=== PATIENT | male | born 1985 | race Hispanic/Latino ===

== ENCOUNTER 2017-07-05 13:27 | Emergency (ER) | payer OTHER ==
[2017-07-05 13:28] VITALS: BMI 25.0
[2017-07-05 17:19] LABS: URINE BILIRUBIN NEGATIVE (NEGATIVE); URINE BLOOD NEGATIVE (NEGATIVE); URINE CLARITY Clear (Clear); URINE COLOR Straw (YELLOW); URINE GLUCOSE (UA) 2+ mg/dL (Normal); URINE LEUKOCYTE ESTERASE NEG Leu/uL (Negative); URINE PROTEIN 2+ mg/dL (NEGATIVE); URINE UROBILINOGEN NORMAL mg/dL (0.2-1.0)
[2017-07-05] MEDS ORDERED: Dextrose 50% SYRINGE Inj (50 ml) IVP STA (17:19)
[2017-07-05 17:20] LABS: EOS # 0.1 K/uL (0.0-0.7); HEMOGLOBIN 11.9 g/dL (12.0-18.0); LYMPH # 1.6 K/uL (1.0-4.3); LYMPH % 43.6 % (20.0-40.0); MEAN CELL VOLUME 91.8 fL (80.0-94.0); MEAN CORPUSCULAR HEMOGLOBIN 32.1 pg (27.0-31.0); MEAN PLATELET VOLUME 8.1 fL (7.2-11.7); MONO # 0.3 K/uL (0.0-0.8); MONO % 9.2 % (0.0-10.0); NEUT # 1.6 K/uL (1.8-7.0); NEUT % 43.2 % (50.0-75.0); NRBC % 0.1 % (0.0-2.0); RBC 3.72 Mil/uL (4.40-5.90); RED CELL DISTRIBUTION WIDTH 12.5 % (11.5-14.5); WHITE BLOOD COUNT 3.6 K/uL (4.8-10.8)
[2017-07-05] MEDS ORDERED: Dextrose 50% VIAL Inj (50 ml) IV ONE (17:22)
[2017-07-05 17:29] LABS: ALB/GLOB RATIO 0.9 (1.0-2.1); ALBUMIN 4.1 g/dL (3.5-5.0); ALT/SGPT 24 U/L (21-72); AST/SGOT 23 U/L (17-59); BLOOD UREA NITROGEN 19 mg/dL (9-20); CALCIUM 9.3 mg/dl (8.6-10.4); GFR AFRICAN-AMERICAN 28; GFR NON-AFRICAN AMERICAN 23
--- NOTE | 2017-07-05 17:38 | RAD ---
PROCEDURE: CHEST RADIOGRAPH, 1 VIEW HISTORY: Chest pain COMPARISON: 12/12/2015. FINDINGS: LUNGS: The lungs are well inflated and clear. There is a small calcified granuloma in the left mid lung. PLEURA: No pneumothorax or pleural fluid seen. CARDIOVASCULAR: Normal. OSSEOUS STRUCTURES: No significant abnormalities. VISUALIZED UPPER ABDOMEN: Normal. OTHER FINDINGS: None. IMPRESSION: No active pulmonary disease.
[2017-07-05 17:40] LABS: CK-MB 1.27 ng/mL (0.0-3.38)
--- NOTE | 2017-07-05 17:43 | RAD ---
PROCEDURE: Bilateral Knee Radiographs. HISTORY: B/L KNEE PAIN COMPARISON: None. FINDINGS: BONES: Right Knee: Bone alignment and mineralization are normal. No acute fracture. Left Knee: Bone alignment and mineralization are normal. No acute fracture. JOINTS: Right Knee: Mild degenerative osteoarthrosis in the medial compartment. Left knee: Mild degenerative osteoarthrosis in the medial compartment. SOFT TISSUES: Right Knee: Normal. Left Knee: Normal. JOINT EFFUSION: Right Knee: None. Left Knee: None. OTHER FINDINGS: None. IMPRESSION: Mild degenerative osteoarthrosis in the medial compartment. No acute fracture or dislocation
--- NOTE | 2017-07-05 18:07 | C.PDOC ---
History Of Present Illness 32 y/o male with history of Type 1 Diabetes, HTN and chronic kidney disease presents to ED with complaints of bilateral knee pain since yesterday and pleuritic chest pain since earlier today. Patient denies trauma, cough, fever, sob or any other complaints at this time. Time Seen by Provider: 07/05/17 16:40 Chief Complaint (Nursing): Lower Extremity Problem/Injury History Per: Patient History/Exam Limitations: no limitations Onset/Duration Of Symptoms: Days Current Symptoms Are (Timing): Still Present Past Medical History Reviewed: Historical Data, Nursing Documentation, Vital Signs Vital Signs: Last Vital Signs Temp 98.2 F 07/05/17 14:52 Pulse 80 07/05/17 17:32 Resp 16 07/05/17 17:32 BP 152/54 H 07/05/17 17:32 Pulse Ox 98 07/05/17 20:07 - Medical History PMH: Diabetes, HTN, Hypercholesterolemia, Chronic Kidney Disease (elevated creatinin) Surgical History: No Surg Hx - [facility] Procedures IRRIGATION OF EAR (08/17/14) Family History: States: No Known Family Hx - Social History Hx Tobacco Use: No Hx Alcohol Use: No Hx Substance Use: Yes (marijuana) - Immunization History Hx Tetanus Toxoid Vaccination: No Hx Influenza Vaccination: No Hx Pneumococcal Vaccination: No Review Of Systems Constitutional: Negative for: Fever, Chills Cardiovascular: Positive for: Chest Pain Respiratory: Negative for: Cough, Shortness of Breath Musculoskeletal: Positive for: Leg Pain Skin: Negative for: Rash Neurological: Negative for: Weakness, Numbness Physical Exam - Physical Exam Appears: Non-toxic, No Acute Distress Skin: Warm, Dry, No Rash Head: Atraumatic, Normacephalic Oral Mucosa: Moist Neck: Normal ROM, Supple Cardiovascular: Rhythm Regular Respiratory: Normal Breath Sounds, No Rales, No Rhonchi, No Wheezing Gastrointestinal/Abdominal: Soft, No Tenderness, No Guarding, No Rebound Extremity: No Calf Tenderness, No Deformity, No Swelling Pulses: Left Dorsalis Pedis: Normal, Right Dorsalis Pedis: Normal Neurological/Psych: Oriented x3, Normal Speech, Normal Motor, Normal Sensation Gait: Steady ED Course And Treatment - Laboratory Results Result Diagrams: 07/05/17 17:10 07/05/17 17:10 ECG: Interpreted By Me, Viewed By Me ECG Rhythm: Sinus Rhythm Rate From EC (BPM) O2 Sat by Pulse Oximetry: 98 (RA) Pulse Ox Interpretation: Normal Progress Note: Blood work, ECG ordered. Dextrose administered Disposition Counseled Patient/Family Regarding: Studies Performed, Diagnosis, Need For Followup, Rx Given - Disposition Referrals: [facility] [Outside] Disposition: HOME/ ROUTINE Disposition Time: 20:10 Condition: STABLE Additional Instructions: FOLLOW UP WITH YOUR DOCTOR IN 1-2 DAYS USE MEDICATIONS NEEDED RETURN TO ER IF SYMPTOMS WORSEN Prescriptions: traMADol [Ultram] 50 mg PO BID PRN #15 tab PRN Reason: pain Instructions: Knee Pain (DC) Forms: [employer] (Lao) Print Language: SETSWANA - POA Present On Arrival: None - Clinical Impression Clinical Impression: Knee pain, bilateral - Scribe Statement The provider has reviewed the documentation as recorded by the Scribcooper Ortiz All medical record entries made by the Kennedyibcooper were at my direction and personally dictated by me. I have reviewed the chart and agree that the record accurately reflects my personal performance of the history, physical exam, medical decision making, and the department course for this patient. I have also personally directed, reviewed, and agree with the discharge instructions and disposition.
[2017-07-05 20:40] VITALS: BP 138/83; PULSE 78; RESP 20; TEMP 98.6; O2SAT 100
[2017-07-06 16:54] LABS: LYME IGG NEGATIVE (NEGATIVE)
[2017-07-06 17:05] LABS: LYME IGM NEGATIVE (NEGATIVE)
--- NOTE | 2017-07-06 17:10 | CARD ---
APPROVED REPORT EKG Measurement Heart [id number] <Conclusion> Normal sinus rhythm Normal ECG
== END 2017-07-05 20:40 | disposition home or self-care (01) ==
LOC: C.ER 13:27
DX: M25.562 Pain in left knee (principal); M25.561 Pain in right knee

== ENCOUNTER 2018-02-25 17:00 | Emergency (ER) | payer OTHER ==
[2018-02-25 17:15] VITALS: BMI 24.7
--- NOTE | 2018-02-25 18:12 | C.PDOC ---
History Of Present Illness 32yo male with history of diabetes, CKD, hypertension, comes to ER reporting new onset left sided pleuritic pain, shortness of breath and dyspnea on exertion sicne this afternoon. Patient states it feels "like I can't catch my breath." He denies any PE risk factors; also denies leg swelling or pain. Patient does have childhood history of asthma but denies any smoking. No other complaints. NEW ONSET L PLEURITIC PAIN, SOB/RITTER SINCE THIS AFTERNOON. WORSE W EXERTION "LIKE I CAN'T CATCH MY BREATH". DENIES PE RISK FACTORS, LEG SWELL OR PAIN. HO CHILDHOOD ASTHMA, NO SMOKING. HO DM1, CKD, HTN. BASELINE GLU 80S BUT TODAY MID 200. NO FEVER, COUGH. BASELINE CREAT 3.5, GFR 23 EXAM NAD NONTOXIC HEENT NEG LUNGS CTA B/L NO W/R/R NO RETRACTIONS SPEAKING FULL SENTENCES CV RRR ABD NEG EXT NO EDEMA REMAINDER NEG Time Seen by Provider: 02/25/18 17:40 Chief Complaint (Nursing): Shortness Of Breath History Per: Patient History/Exam Limitations: no limitations Onset/Duration Of Symptoms: Hrs Current Symptoms Are (Timing): Still Present Additional History Per: Patient Past Medical History Reviewed: Historical Data, Nursing Documentation, Vital Signs Vital Signs: Last Vital Signs Temp 98.8 F 02/25/18 17:17 Pulse 102 H 02/25/18 17:17 Resp 20 02/25/18 17:44 BP 149/97 H 02/25/18 17:17 Pulse Ox 100 02/25/18 17:17 - Medical History PMH: Asthma, Diabetes, HTN, Hypercholesterolemia, Chronic Kidney Disease (elevated creatinin) Surgical History: No Surg Hx - [facility] Procedures IRRIGATION OF EAR (08/17/14) Family History: States: Unknown Family Hx - Social History Hx Tobacco Use: No Hx Alcohol Use: No Hx Substance Use: Yes (marijuana) - Immunization History Hx Tetanus Toxoid Vaccination: No Hx Influenza Vaccination: No Hx Pneumococcal Vaccination: No Review Of Systems Except As Marked, All Systems Reviewed And Found Negative. Constitutional: Negative for: Fever Respiratory: Positive for: Shortness of Breath, SOB with Excertion, Pleuritic Pain (left sided). Negative for: Cough Musculoskeletal: Negative for: Leg Pain, Other (leg swelling) Physical Exam - Physical Exam Appears: Non-toxic, No Acute Distress Skin: Normal Color, Warm, Dry Head: Atraumatic, Normacephalic Eye(s): bilateral: Normal Inspection, PERRL, EOMI Nose: Normal Oral Mucosa: Moist Throat: Normal, No Erythema, No Exudate Neck: Normal ROM, Supple Chest: Symmetrical Cardiovascular: Rhythm Regular, No Murmur Respiratory: Normal Breath Sounds, No Rales, No Rhonchi, No Wheezing, Other (speaking full sentences; no retractions) Gastrointestinal/Abdominal: Normal Exam, Soft, No Tenderness Back: Normal Inspection Extremity: Normal ROM, No Pedal Edema Neurological/Psych: Oriented x3, Normal Speech, Normal Cognition, Normal Motor, Normal Sensation ED Course And Treatment - Laboratory Results Result Diagrams: 02/25/18 18:29 02/25/18 18:29 ECG: Interpreted By Me ECG Rhythm: Sinus Tachycardia ECG Interpretation: Normal Rate From EC O2 Sat by Pulse Oximetry: 100 (RA) Pulse Ox Interpretation: Normal - Radiology CXR: Interpreted by Me CXR Interpretation: Yes: No Acute Disease - Other Rad CXR X-Ray: Read By Radiologist Interpretation: FINDINGS: LUNGS: No active pulmonary disease. PLEURA: No significant pleural effusion identified. No pneumothorax apparent. CARDIOVASC ULAR: No aortic atherosclerotic calcification present. Normal cardiac size. No pulmonary vascular congestion. OSSEOUS STRUCTURES: No significant abnormalities. VISUALIZED UPPER ABDOMEN: Normal. OTHER FINDINGS: None. IMPRESSION: No active disease. No significant interval change compared to the prior examination(s). Progress - Re-Evaluation Re-evaluation Note: 02/25/18 20:39 FEELS BETTER NAD VSS IMPROVED. DC FU PMD - Data Reviewed Data Reviewed: Lab, Diagnostic imaging, EKG, Old records Disposition Counseled Patient/Family Regarding: Studies Performed, Diagnosis, Need For Followup - Disposition Referrals: YOUR,PMD [Other] Disposition: HOME/ ROUTINE Disposition Time: 20:39 Condition: IMPROVED Instructions: Shortness of Breath (Dyspnea) (DC) Forms: [employer] (Divehi) - Clinical Impression Clinical Impression: Dyspnea, Chronic renal disease - Scribe Statement The provider has reviewed the documentation as recorded by the Aletha Velazquez Provider Attestation: All medical record entries made by the Kennedyibcooper were at my direction and personally dictated by me. I have reviewed the chart and agree that the record accurately reflects my personal performance of the history, physical exam, medical decision making, and the department course for this patient. I have also personally directed, reviewed, and agree with the discharge instructions and disposition.
[2018-02-25 18:37] LABS: BASO % 0.8 % (0.0-2.0); EOS # 0.2 K/uL (0.0-0.7); HEMOGLOBIN 12.6 g/dL (12.0-18.0); LYMPH # 2.1 K/uL (1.0-4.3); LYMPH % 44.4 % (20.0-40.0); MEAN CELL VOLUME 92.6 fL (80.0-94.0); MEAN CORPUSCULAR HEMOGLOBIN 32.6 pg (27.0-31.0); MEAN CORPUSCULAR HGB CONC 35.2 g/dL (33.0-37.0); MEAN PLATELET VOLUME 8.1 fL (7.2-11.7); MONO # 0.4 K/uL (0.0-0.8); MONO % 9.6 % (0.0-10.0); NEUT # 1.9 K/uL (1.8-7.0); NEUT % 41.2 % (50.0-75.0); RBC 3.87 Mil/uL (4.40-5.90); RED CELL DISTRIBUTION WIDTH 11.9 % (11.5-14.5); WHITE BLOOD COUNT 4.7 K/uL (4.8-10.8)
[2018-02-25 18:47] LABS: ALB/GLOB RATIO 1.1 (1.0-2.1); ALBUMIN 4.4 g/dL (3.5-5.0); CALCIUM 9.2 mg/dl (8.6-10.4)
--- NOTE | 2018-02-25 18:48 | RAD ---
Date of service: 02/25/2018 HISTORY: SOB COMPARISON: 07/05/2017. TECHNIQUE: Chest PA and lateral FINDINGS: LUNGS: No active pulmonary disease. PLEURA: No significant pleural effusion identified. No pneumothorax apparent. CARDIOVASCULAR: No aortic atherosclerotic calcification present. Normal cardiac size. No pulmonary vascular congestion. OSSEOUS STRUCTURES: No significant abnormalities. VISUALIZED UPPER ABDOMEN: Normal. OTHER FINDINGS: None. IMPRESSION: No active disease. No significant interval change compared to the prior examination(s).
[2018-02-25 18:50] LABS: VENOUS BLOOD GAS BASE EXCESS -2.4 mmol/L (0.0-2.0); VENOUS BLOOD GAS PCO2 42 mmHg (40-60); VENOUS BLOOD GAS PO2 52 mm/Hg (30-55); VENOUS BLOOD PH 7.35 (7.32-7.43)
[2018-02-25 18:55] LABS: B-TYPE NATRIURETIC PEPTIDE 78.6 pg/mL (0-450)
[2018-02-25 18:56] VITALS: RESP 18
[2018-02-25 20:16] LABS: URINE BILIRUBIN NEGATIVE (NEGATIVE); URINE BLOOD NEGATIVE (NEGATIVE); URINE CLARITY Clear (Clear); URINE COLOR Straw (YELLOW); URINE GLUCOSE (UA) NORMAL (Normal); URINE LEUKOCYTE ESTERASE NEG Leu/uL (Negative); URINE PROTEIN NEGATIVE (NEGATIVE); URINE UROBILINOGEN NORMAL mg/dL (0.2-1.0)
[2018-02-25 20:29] VITALS: O2SAT 100
[2018-02-25 20:47] VITALS: BP 122/76; PULSE 78; TEMP 98.5
== END 2018-02-25 20:48 | disposition home or self-care (01) ==
LOC: C.ER 17:00
DX: I12.9 Hypertensive chronic kidney disease with stage 1 through stage 4 chronic kidney disease, or unspecified chronic kidney disease (principal); E11.22 Type 2 diabetes mellitus with diabetic chronic kidney disease; N18.9 Chronic kidney disease, unspecified; R06.00 Dyspnea, unspecified; J45.909 Unspecified asthma, uncomplicated; E78.00 Pure hypercholesterolemia, unspecified; Z87.891 Personal history of nicotine dependence

== ENCOUNTER 2018-03-24 21:12 | Emergency (ER) | payer OTHER ==
[2018-03-24 21:13] VITALS: BMI 24.7
[2018-03-24 21:45] VITALS: BP 162/96; PULSE 90; RESP 18; TEMP 98.1; O2SAT 99
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
== END 2018-03-24 22:26 | disposition home or self-care (01) ==
LOC: C.ER 21:12
DX: T14.8XXA Other injury of unspecified body region, initial encounter (principal); V86.52XA Driver of snowmobile injured in nontraffic accident, initial encounter; E78.00 Pure hypercholesterolemia, unspecified; I12.9 Hypertensive chronic kidney disease with stage 1 through stage 4 chronic kidney disease, or unspecified chronic kidney disease; N18.9 Chronic kidney disease, unspecified